=== PATIENT | female | born 2005 | race African-American/Black ===

== ENCOUNTER 2025-02-27 08:12 | Emergency (ER) | payer OTHER ==
[~2025-02-27] VITALS: Ht 162.6 cm; Wt 76.3 kg
[2025-02-27 10:22] VITALS: BP 114/73; TEMP 98.2; O2SAT 100
== END 2025-02-27 10:37 | disposition home or self-care (01) ==
LOC: M ED 08:12
DX: R07.0 Pain in throat (principal); B34.9 Viral infection, unspecified; F17.290 Nicotine dependence, other tobacco product, uncomplicated

== ENCOUNTER 2025-03-11 23:29 | Inpatient (IN) | payer OTHER ==
[~2025-03-11] VITALS: Ht 160 cm; Wt 75.5 kg
[2025-03-12 00:18] LABS: PLATELET COUNT, AUTOMATED 379 10^3/uL (150-450)
[2025-03-12 00:37] LABS: AMPHETAMINES LEVEL URINE NEGATIVE (NEGATIVE); BARBITURATES URINE NEGATIVE (NEGATIVE); BENZODIAZEPINES URINE NEGATIVE (NEGATIVE); CANNABINOIDS URINE NEGATIVE (NEGATIVE); COCAINE METABOLITE URINE NEGATIVE (NEGATIVE); METHADONE URINE NEGATIVE (NEGATIVE); OPIATES URINE NEGATIVE (NEGATIVE); PHENCYCLIDINE URINE NEGATIVE (NEGATIVE)
[2025-03-12 00:39] LABS: ETHYL ALCOHOL (ETHANOL) < 0.003 % (0.000-0.010)
[2025-03-12 00:40] LABS: ALT/SGPT 11 U/L (7.0-40); AST/SGOT 21 U/L (<34); CALCIUM LEVEL 8.8 MG/DL (8.5-10.1); CARBON DIOXIDE LEVEL 25 MMOL/L (20-31); CHLORIDE LEVEL 108 MMOL/L (98-107); CREATININE FOR GFR 0.77 MG/DL (0.55-1.30); GLOMERULAR FILTRATION RATE > 90.0 (>60); POTASSIUM SERUM 4.1 MMOL/L (3.5-5.1); SALICYLATE LEVEL < 3.0 MG/DL (<30); SODIUM LEVEL 143 MMOL/L (136-145)
[2025-03-12] MEDS ORDERED: ACETAMINOPHEN 325 MG TAB PO PRN (03:40)
[2025-03-12] MEDS ORDERED: MAALOX 30 ML SUSP *UDC PO PRN (03:40)
[2025-03-12] MEDS ORDERED: MOM 30 ML SUSPENSION UDC PO PRN (03:40)
[2025-03-12] MEDS ORDERED: traZODone 50 MG TAB PO PRN (03:40)
[2025-03-12] MEDS ORDERED: IBUPROFEN 400 MG TAB PO PRN (03:40)
[2025-03-12 04:15] VITALS: BP 121/76; TEMP 97.6; O2SAT 98
[2025-03-12 15:12] VITALS: BP 123/69; TEMP 98.1; O2SAT 96
[2025-03-13 06:11] VITALS: BP 105/53; TEMP 98.2; O2SAT 98
[2025-03-13 15:38] VITALS: BP 117/56; TEMP 98.3; O2SAT 99
[2025-03-14 05:51] VITALS: BP 133/54; TEMP 97.8; O2SAT 99
== END 2025-03-14 10:32 | disposition home or self-care (01) | DRG 881 ==
LOC: M ED 23:29 → EDBD 23:29 → M ED INP 03-12 03:37 → M PSY 03-12 04:29
PROVIDERS: ADMIT General Practice; ATTEND General Practice
DX: F32.A Depression, unspecified (principal); R45.851 Suicidal ideations; F17.290 Nicotine dependence, other tobacco product, uncomplicated; Z63.5 Disruption of family by separation and divorce; Z56.89 Other problems related to employment; Z91.51 Personal history of suicidal behavior